=== PATIENT | male | born 1955 | race Caucasian/White ===

== ENCOUNTER 2019-10-19 15:34 | Inpatient (IN) | payer MEDICARE ==
[~2019-10-19] VITALS: Ht 180.3 cm; Wt 115.4 kg
[2019-10-19 17:16] LABS: BASO # 0.1 x10^3/uL (0.0-0.2); BASO % 1 % (0-3); EOS # 0.1 x10^3/uL (0.0-0.7); EOS % 1 % (0-3); HEMATOCRIT 34.4 % (39.0-53.0); LYMPH # 1.7 x10^3/uL (1.0-4.8); LYMPH % 17 % (24-48); MEAN CORPUSCULAR HEMOGLOBIN 31 pg (25-35); MEAN CORPUSCULAR HGB CONC 35 g/dL (31-37); MEAN CORPUSCULAR VOLUME 90 fL (79-100); MONO # 0.9 x10^3/uL (0.0-1.1); MONO % 9 % (0-9); NEUT # 7.3 x10^3/uL (1.8-7.7); NEUT % 72 % (31-73); PLATELET COUNT 200 x10^3/uL (140-400); RED BLOOD COUNT 3.85 x10^6/uL (4.30-5.70); WHITE BLOOD COUNT 10.2 x10^3/uL (4.0-11.0)
[2019-10-19 17:25] LABS: PROTHROMBIN TIME PATIENT 13.2 SEC (11.7-14.0)
[2019-10-19 17:26] LABS: CALCIUM 8.3 mg/dL (8.5-10.1); CREATININE 1.1 mg/dL (0.7-1.3); POTASSIUM 3.7 mmol/L (3.5-5.1)
[2019-10-19 17:32] LABS: ALBUMIN 3.1 g/dL (3.4-5.0); MAGNESIUM 1.9 mg/dL (1.8-2.4); TOTAL BILIRUBIN 0.3 mg/dL (0.2-1.0); TOTAL PROTEIN 6.3 g/dL (6.4-8.2)
[2019-10-19 17:41] LABS: CREATINE KINASE 53 U/L (39-308)
--- NOTE | 2019-10-19 17:48 | RAD ---
CT brain without contrast. HISTORY: Syncopal episode CT scan of brain was done without contrast. There is mucous retention cyst in the right maxillary antrum. There is mucosal thickening in the left maxillary antrum. There is bowing the nasal septum to the right. Remaining sinuses are clear. A skull fracture is not identified. Ventricles are normal in size. There is no mass or shift of the midline. There is no intracranial hemorrhage or subdural hematoma. An acute CVA is not identified. IMPRESSION: 1. No intracranial hemorrhage or acute finding noted. PQRS Compliance Statement: One or more of the following individualized dose reduction techniques were utilized for this examination: 1. Automated exposure control 2. Adjustment of the mA and/or kV according to patient size 3. Use of iterative reconstruction technique Electronically signed by: Etienne Rai MD (10/19/2019 5:45 PM) [facility]
[2019-10-19 18:43] LABS: BILIRUBIN,URINE NEGATIVE (NEG); CLARITY,URINE CLEAR; COLOR,URINE YELLOW; NITRITE,URINE NEGATIVE (NEG); PH,URINE 5.5 (<5.0-8.0); PROTEIN,URINE NEGATIVE (NEG-TRACE); UROBILINOGEN,URINE 0.2 mg/dL (0.2 mg/dL)
[2019-10-19] MEDS ORDERED: IV NORMAL SALINE 1000ML BAG 1,000 ML IV ONE (18:45)
[2019-10-19 18:49] LABS: BACTERIA,URINE 0 /HPF (0-FEW); RBC,URINE 0 /HPF (0-2); WBC,URINE OCC /HPF (0-4)
[2019-10-19] MEDS ORDERED: IV NORMAL SALINE 500ML BAG 500 ML IV ONE (20:45)
--- NOTE | 2019-10-19 22:07 | PHYS DOC ---
Past Medical History Past Medical History: No Pertinent History Past Surgical History: No Surgical History Smoking Status: Never Smoker Alcohol Use: Heavy Additional Information: 5 beers per day General Adult EDM: Chief Complaint: SYNCOPE HPI: HPI: Patient is a 64 year old male who presents to the emergency department following a syncopal episode. Patient states at 4:00 this morning he woke up and felt sweaty and dizzy. He went to the restroom and became nauseated while he was having a bowel movement and felt like he might pass out so he decided to go back to his bed. Patient states at 520 he woke up sitting on his floor. At that time he got back up and went back to bed. Throughout the day today he has noticed dizziness when he gets up to stand. He denies any shortness of breath, cough, chest pain, palpitations, vision changes, numbness, tingling, or weakness. Patient states that he had been mowing outside in the heat for several hours yesterday and felt dizzy when he got home but felt better after he had rested for short period of time. Patient denies any vomiting or abdominal pain. He states that he did have some watery diarrhea today. He currently denies any pain. He denies any medical or surgical history. Patient reports that he does drink alcohol daily usually has 4-5 beers each day. Review of Systems: Review of Systems: Constitutional: See HPI Eyes: Denies change in visual acuity. [] HENT: Denies nasal congestion or sore throat. [] Respiratory: Denies cough or shortness of breath. [] Cardiovascular: Denies chest pain or edema. [] GI: Denies abdominal pain, OR vomiting; see HPI, : Denies dysuria. [] Musculoskeletal: Denies back pain or joint pain. [] Integument: Denies rash. [] Neurologic: Denies headache; see HPI Psychiatric: Denies depression or anxiety. [] Heart Score: Risk Factors: Risk Factors: DM, Current or recent (<one month) smoker, HTN, HLP, family history of CAD, obesity. Risk Scores: Score 0 - 3: 2.5% MACE over next 6 weeks - Discharge Home Score 4 - 6: 20.3% MACE over next 6 weeks - Admit for Clinical Observation Score 7 - 10: 72.7% MACE over next 6 weeks - Early Invasive Strategies Current Medications: Current Medications Medications (Trade) Dose Ordered Sig/Casi Start Time Stop Time Status Last Admin Dose Admin Sodium Chloride 500 ml @ 500 mls/hr 1X ONCE 10/19/19 20:45 10/19/19 21:44 DC 10/19/19 20:48 500 MLS/HR Allergies: Allergies: Allergies Coded Allergies Type Severity Reaction Last Updated Verified No Known Drug Allergies 10/19/19 No Physical Exam: PE: Constitutional: Well developed, well nourished, no acute distress, non-toxic appearance. [] HENT: Normocephalic, atraumatic, bilateral external ears normal, oropharynx dry, no oral exudates, nose normal. [] Eyes: PERRLA, EOMI, conjunctiva normal, no discharge, no nystagmus. [] Neck: Normal range of motion, no stridor. [] Cardiovascular:Heart rate regular rhythm, no murmur [] Lungs & Thorax: Bilateral breath sounds clear to auscultation, my lungs [] Abdomen: soft, no tenderness, no masses, no pulsatile masses. [] Skin: Warm, dry, no erythema, no rash. [] Back: No tenderness Extremities: No cyanosis, no clubbing, ROM intact, no edema. [] Neurologic: Alert and oriented X 3, normal motor function, normal sensory fun ction, no focal deficits noted. [] Psychologic: Affect normal, judgement normal, mood normal. [] Current Patient Data: Labs: Laboratory Tests Test 10/19/19 17:05 10/19/19 18:35 White Blood Count 10.2 x10^3/uL (4.0-11.0) Red Blood Count 3.85 x10^6/uL (4.30-5.70) L Hemoglobin 12.0 g/dL (13.0-17.5) L Hematocrit 34.4 % (39.0-53.0) L Mean Corpuscular Volume 90 fL (79-100) Mean Corpuscular Hemoglobin 31 pg (25-35) Mean Corpuscular Hemoglobin Concent 35 g/dL (31-37) Red Cell Distribution Width 14.0 % (11.5-14.5) Platelet Count 200 x10^3/uL (140-400) Neutrophils (%) (Auto) 72 % (31-73) Lymphocytes (%) (Auto) 17 % (24-48) L Monocytes (%) (Auto) 9 % (0-9) Eosinophils (%) (Auto) 1 % (0-3) Basophils (%) (Auto) 1 % (0-3) Neutrophils # (Auto) 7.3 x10^3/uL (1.8-7.7) Lymphocytes # (Auto) 1.7 x10^3/uL (1.0-4.8) Monocytes # (Auto) 0.9 x10^3/uL (0.0-1.1) Eosinophils # (Auto) 0.1 x10^3/uL (0.0-0.7) Basophils # (Auto) 0.1 x10^3/uL (0.0-0.2) Prothrombin Time 13.2 SEC (11.7-14.0) Prothrombin Time INR 1.0 (0.8-1.1) Activated Partial Thromboplast Time 23 SEC (24-38) L Sodium Level 136 mmol/L (136-145) Potassium Level 3.7 mmol/L (3.5-5.1) Chloride Level 104 mmol/L (98-107) Carbon Dioxide Level 21 mmol/L (21-32) Anion Gap 11 (6-14) Blood Urea Nitrogen 34 mg/dL (8-26) H Creatinine 1.1 mg/dL (0.7-1.3) Estimated GFR (Cockcroft-Gault) 67.0 BUN/Creatinine Ratio 31 (6-20) H Glucose Level 176 mg/dL (70-99) H Calcium Level 8.3 mg/dL (8.5-10.1) L Magnesium Level 1.9 mg/dL (1.8-2.4) Total Bilirubin 0.3 mg/dL (0.2-1.0) Aspartate Amino Transferase (AST) 18 U/L (15-37) Alanine Aminotransferase (ALT) 24 U/L (16-63) Alkaline Phosphatase 48 U/L (46-116) Creatine Kinase 53 U/L (39-308) Creatine Kinase MB (Mass) 1.0 ng/mL (0.0-3.6) Creatine Kinase MB Relative Index % (0-4) Troponin I Quantitative < 0.017 ng/mL (0.000-0.055) Total Protein 6.3 g/dL (6.4-8.2) L Albumin 3.1 g/dL (3.4-5.0) L Albumin/Globulin Ratio 1.0 (1.0-1.7) Urine Collection Type Unknown Urine Color Yellow Urine Clarity Clear Urine pH 5.5 (<5.0-8.0) Urine Specific [place] >=1.030 (1.000-1.030) Urine Protein Negative mg/dL (NEG-TRACE) Urine Glucose (UA) Negative mg/dL (NEG) Urine Ketones (Stick) Negative mg/dL (NEG) Urine Blood Negative (NEG) Urine Nitrite Negative (NEG) Urine Bilirubin Negative (NEG) Urine Urobilinogen Dipstick 0.2 mg/dL (0.2 mg/dL) Urine Leukocyte Esterase Negative (NEG) Urine RBC 0 /HPF (0-2) Urine WBC Occ /HPF (0-4) Urine Bacteria 0 /HPF (0-FEW) Urine Mucus Mod /LPF Laboratory Tests 10/19/19 17:05 Laboratory Tests 10/19/19 17:05 Vital Signs: Vital Signs Date Time Temp Pulse Resp B/P (MAP) Pulse Ox O2 Delivery O2 Flow Rate FiO2 10/19/19 18:52 87 20 125/75 (92) 98 10/19/19 16:47 98.1 Room Air 98.1 EKG: EK sinus tachycardia rate 115, left anterior fascicular block no STEMI read by Dr. Roberts [] Radiology/Procedures: Radiology/Procedures: PROCEDURE: CT HEAD WO CONTRAST CT brain without contrast. HISTORY: Syncopal episode CT scan of brain was done without contrast. There is mucous retention cyst in the right maxillary antrum. There is mucosal thickening in the left maxillary antrum. There is bowing the nasal septum to the right. Remaining sinuses are clear. A skull fracture is not identified. Ventricles are normal in size. There is no mass or shift of the midline. There is no intracranial hemorrhage or subdural hematoma. An acute CVA is not identified. IMPRESSION: 1. No intracranial hemorrhage or acute finding noted. [] Course & Med Decision Making: Course & Med Decision Making Pertinent Labs and Imaging studies reviewed. (See chart for details) [id number] with Dr Erazo who is the admitting physician, and care was assum ed following discussion of patient. Will admit patient to the telemetry floor for syncope, order banana bag at 100 mils an hour, and a cardiology consult. Patient's vital signs stable. Patient remains afebrile, appears nontoxic, respirations even and unlabored. Patient continues to be dizzy with position changes after 1500 mL of IV fluids. Patient's case and plan of care also discussed with Dr. Roberts. [] Park Disclaimer: Park Disclaimer: This electronic medical record was generated, in whole or in part, using a voice recognition dictation system. Departure Departure Impression: Primary Impression: Syncope Qualified Codes: R55 - Syncope and collapse Disposition: ADMITTED INPATIENT Admitting Physician: HORTENSIA ([facility]) Condition: STABLE Referrals: NO PCP (PCP) Justicifation of Admission Dx: Justifications for Admission: Justification of Admission Dx: Yes Comments: syncope dizzy RONALD LE APRN Oct 19, 2019 22:07
[2019-10-19] MEDS ORDERED: MULTIVIT INFUSN,ADULT 4,VIT K 10 ML, THIAMINE INJ 100 MG, FOLIC ACID INJ 1 MG in IV NOR... IV ONE (22:15)
[2019-10-19 23:51] VITALS: BP 117/68
[2019-10-20] VITALS (7 sets, daily range): BP systolic 111–127; BP diastolic 62–72
--- NOTE | 2019-10-20 06:12 | EKG ---
[facility] [address] [place] [address] Test Date: 2019-10-19 Test Time: 16:58:40 Pat Name: SATINDER AZEVEDO Department: Room: Gender: M Silk Screener: : [id number] Requested By: RONALD LE Order Number: [id number] Reading MD: Measurements Intervals [place] Rate: 115 P: 29 NM: 174 QRS: -46 QRSD: 120 T: 71 QT: 324 QTc: 450 Interpretive Statements SINUS TACHYCARDIA ABNORMAL LEFT AXIS DEVIATION R-S TRANSITION ZONE IN V LEADS DISPLACED TO THE LEFT LEFT ANTERIOR FASCICULAR BLOCK ST & T ABNORMALITY, CONSIDER HIGH LATERAL ISCHEMIA OR LEFT VENTRICULAR STRAIN ABNORMAL ECG RI6.01 No previous ECG available for comparison
--- NOTE | 2019-10-20 07:48 | PDOC2 ---
STEVEN CHAU QUANTITATIVE MANAGER 10/20/19 0748: CARDIAC CONSULT DATE OF CONSULT Date of Consult DATE: 10/20/19 TIME: 07:39 REASON FOR CONSULT Reason for Consult: Syncope REFERRING PHYSICIAN Referring Physician: Marianela SOURCE Source: Chart review, Patient HISTORY OF PRESENT ILLNESS HISTORY OF PRESENT ILLNESS This is a pleasant 64 yo male admitted for complains of passin gout. Reports that the other he was mowing for about 1.5 hours midday. He did not drink much fluids that day. In the afternoon he started having dizzy spells. No falls. No chest pain or SOA. No palpitations. He does drink about 4- beers almost daily. 11 PM his dizziness was intermittent. He went to bed and woke up at 4 AM and was dizzy and went to the bathroom and tried to have a BM and ended up with watery stool and was dark and has some red hue in it thinking he must have blood in his BM. He was nauseated and was heading to his bed and then got dizzy and could not recall what happened as when he woke up he was sitting on the floor by the bed. Denies any palpitations, SOA, focal neuro symptoms but did have some mild throbbing TORRES to his left parietal region of his head. No further recurrence of this symptoms but his unconsciousness lasted about from 415 AM to 520 AM. No prior significant CV hx and has not been to a Dr. in a while and no significant cardiac hx. PAST MEDICAL HISTORY Past Medical History umbilical hernia, otherwise no significant medical hx. PAST SURGICAL HISTORY Past Surgical History: No pertinent history FAMILY HISTORY Family History: Diabetes (brother), Stroke (father) SOCIAL HISTORY Smoke: No ALCOHOL: other (4-5 beers at least 4 times weekly) Drugs: None Lives: Alone CURRENT MEDICATIONS CURRENT MEDICATIONS Current Medications Medications (Trade) Dose Ordered Sig/Casi Route PRN Reason Start Time Stop Time Status Last Admin Dose Admin Sodium Chloride 1,000 ml @ 1,000 mls/hr 1X ONCE IV 10/19/19 18:45 10/19/19 19:44 DC 10/19/19 19:15 Sodium Chloride 500 ml @ 500 mls/hr 1X ONCE IV 10/19/19 20:45 10/19/19 21:44 DC 10/19/19 20:48 Multivitamins 10 ml/Thiamine HCl 100 mg/Folic Acid 1 mg/Sodium Chloride 1,011.2 ml @ 100 mls/ hr 1X ONCE IV 10/19/19 22:15 10/20/19 08:21 10/19/19 22:32 ALLERGIES ALLERGIES: Coded Allergies: No Known Drug Allergies (Unverified , 10/19/19) ROS Review of System 14 point ROS evaluated with pertinent positives noted per HPI PHYSICAL EXAM General: Alert, Oriented X3, Cooperative HEENT: Mucous membr. moist/pink Lungs: Clear to auscultation, Normal air movement Heart: Regular rate (SR with no significnat rhythm ectopies) Abdomen: Soft, No tenderness Extremities: No cyanosis, No edema Skin: No breakdown, No significant lesion Neuro: Normal speech, Sensation intact Psych/Mental Status: Mental status NL, Mood NL MUSCULOSKELETAL: Osteoarthritic changes both hands VITALS/I&O VITALS/I&O: Vital Signs Date Time Temp Pulse Resp B/P (MAP) Pulse Ox O2 Delivery O2 Flow Rate FiO2 10/20/19 03:32 98.4 83 18 119/67 (84) 97 Room Air 98.4 I & O 10/19/19 10/19/19 10/20/19 15:00 23:00 07:00 Intake Total 1500 ml Output Total 500 ml Balance 1500 ml -500 ml LABS Lab: Laboratory Tests Test 10/19/19 17:05 10/19/19 18:35 White Blood Count 10.2 x10^3/uL (4.0-11.0) Red Blood Count 3.85 x10^6/uL (4.30-5.70) L Hemoglobin 12.0 g/dL (13.0-17.5) L Hematocrit 34.4 % (39.0-53.0) L Mean Corpuscular Volume 90 fL (79-100) Mean Corpuscular Hemoglobin 31 pg (25-35) Mean Corpuscular Hemoglobin Concent 35 g/dL (31-37) Red Cell Distribution Width 14.0 % (11.5-14.5) Platelet Count 200 x10^3/uL (140-400) Neutrophils (%) (Auto) 72 % (31-73) Lymphocytes (%) (Auto) 17 % (24-48) L Monocytes (%) (Auto) 9 % (0-9) Eosinophils (%) (Auto) 1 % (0-3) Basophils (%) (Auto) 1 % (0-3) Neutrophils # (Auto) 7.3 x10^3/uL (1.8-7.7) Lymphocytes # (Auto) 1.7 x10^3/uL (1.0-4.8) Monocytes # (Auto) 0.9 x10^3/uL (0.0-1.1) Eosinophils # (Auto) 0.1 x10^3/uL (0.0-0.7) Basophils # (Auto) 0.1 x10^3/uL (0.0-0.2) Prothrombin Time 13.2 SEC (11.7-14.0) Prothrombin Time INR 1.0 (0.8-1.1) Activated Partial Thromboplast Time 23 SEC (24-38) L Sodium Level 136 mmol/L (136-145) Potassium Level 3.7 mmol/L (3.5-5.1) Chloride Level 104 mmol/L (98-107) Carbon Dioxide Level 21 mmol/L (21-32) Anion Gap 11 (6-14) Blood Urea Nitrogen 34 mg/dL (8-26) H Creatinine 1.1 mg/dL (0.7-1.3) Estimated GFR (Cockcroft-Gault) 67.0 BUN/Creatinine Ratio 31 (6-20) H Glucose Level 176 mg/dL (70-99) H Calcium Level 8.3 mg/dL (8.5-10.1) L Magnesium Level 1.9 mg/dL (1.8-2.4) Total Bilirubin 0.3 mg/dL (0.2-1.0) Aspartate Amino Transferase (AST) 18 U/L (15-37) Alanine Aminotransferase (ALT) 24 U/L (16-63) Alkaline Phosphatase 48 U/L (46-116) Creatine Kinase 53 U/L (39-308) Creatine Kinase MB (Mass) 1.0 ng/mL (0.0-3.6) Creatine Kinase MB Relative Index % (0-4) Troponin I Quantitative < 0.017 ng/mL (0.000-0.055) Total Protein 6.3 g/dL (6.4-8.2) L Albumin 3.1 g/dL (3.4-5.0) L Albumin/Globulin Ratio 1.0 (1.0-1.7) Urine Collection Type Unknown Urine Color Yellow Urine Clarity Clear Urine pH 5.5 (<5.0-8.0) Urine Specific [place] >=1.030 (1.000-1.030) Urine Protein Negative mg/dL (NEG-TRACE) Urine Glucose (UA) Negative mg/dL (NEG) Urine Ketones (Stick) Negative mg/dL (NEG) Urine Blood Negative (NEG) Urine Nitrite Negative (NEG) Urine Bilirubin Negative (NEG) Urine Urobilinogen Dipstick 0.2 mg/dL (0.2 mg/dL) Urine Leukocyte Esterase Negative (NEG) Urine RBC 0 /HPF (0-2) Urine WBC Occ /HPF (0-4) Urine Bacteria 0 /HPF (0-FEW) Urine Mucus Mod /LPF Laboratory Tests 10/19/19 17:05 Laboratory Tests 10/19/19 17:05 ASSESSMENT/PLAN ASSESSMENT/PLAN 1. Syncope: dehydration contributing but could not completely rule out arrhythmia 2. Alcohol misuse 3. Possible GI bleed: reported diarrhea dark with red hue 4. Prerenal azotemia: due to dehydration 5. Obesity 6. Hyperglycemia Recommendations 1. Has been IV hydrated. TTE today and will consider for MCOT 2. Consider GI eval. Curb ETOH use 3. TSH lipids and A1C AASHISH EUGENE MD 10/20/19 1833: CARDIAC CONSULT ASSESSMENT/PLAN ASSESSMENT/PLAN Patient seen and examined. Agree with above nurse practitioner note. No obvious cardiac pathology noted thus far with a normal echocardiogram and event recorder. He woke up with some night sweats and some symptoms suggestive for possible coronary disease We will plan for an outpatient stress test. He does not have any current angina and he has been active mowing his yard up until recently. STEVEN CHAU QUANTITATIVE MANAGER Oct 20, 2019 07:48 AASHISH EUGENE MD Oct 20, 2019 18:33
[2019-10-20 08:35] LABS: CALCIUM 7.4 mg/dL (8.5-10.1); GFR 74.8; POTASSIUM 3.8 mmol/L (3.5-5.1)
[2019-10-20 08:38] LABS: CHOLESTEROL/HDL RATIO 4.6
--- NOTE | 2019-10-20 09:09 | PDOC1 ---
History and Physical Date of Admission Date of Admission DATE: 10/20/19 TIME: 09:07 Identification/Chief Complaint Chief Complaint Syncope Source Source: Patient History of Present Illness History of Present Illness Mr Escalona is a 64 yo M w/ PMHx of elevated blood pressure without diagnosis of hypertension who presented to the ED via private vehicle after what he describes a syncopal episode. He notes on 10 17 in the evening he mowed the grass and noted it was 98 F he felt tired but still finish the last 20 feet anyway was exhausted and fell asleep very early with a fan and air conditioning on. He awoke suddenly at 4 AM on 10/20/2019 sweating and dizzy and felt the urge to have a bowel movement, he had a large amount of diarrhea with some blood in it and felt relieved and as he was going back to bed he felt a little dizzy and suddenly awoke at 5:20 AM with a headache some dizziness and felt "hung over". He did not note any chest pain or shortness of breath no lower extremity edema. No recent sick contacts. He is a non-smoker drinks 4-5 total beers a week. He is rather sedentary. He does note his father at age 68 though he was a heavy smoker and did have multiple strokes. His mother has diabetes and at age 63, his younger brother has diabetes and he has 3 sisters but otherwise healthy. No known coronary disease in the family. No history of blood clots in the family other than his father's history of strokes. EKG was sinus tachycardia with a rate of 115 bpm with what appeared to be a left anterior fascicular block. CT head was negative for acute abnormality. Troponin negative TSH within normal limits labs within normal limits except glucose of 174 though he had just eaten prior to come to the ED. Fasting glucose morning 104. Current Medications Current Medications Current Medications Sodium Chloride 1,000 ml @ 1,000 mls/hr 1X ONCE IV Last administered on 10/19/19at 19:15; Start 10/19/19 at 18:45; Stop 10/19/19 at 19:44; Status DC Sodium Chloride 500 ml @ 500 mls/hr 1X ONCE IV Last administered on 10/19/19at 20:48; Start 10/19/19 at 20:45; Stop 10/19/19 at 21:44; Status DC Multivitamins 10 ml/Thiamine HCl 100 mg/Folic Acid 1 mg/Sodium Chloride 1,011.2 ml @ 100 mls/ hr 1X ONCE IV Last administered on 10/19/19at 22:32; Start 10/19/19 at 22:15; Stop 10/20/19 at 08:21; Status DC Allergies Allergies: Coded Allergies: No Known Drug Allergies (Unverified , 10/19/19) Vitals Vitals Vital Signs Date Time Temp Pulse Resp B/P (MAP) Pulse Ox O2 Delivery O2 Flow Rate FiO2 10/20/19 08:24 97 115/69 (84) 10/20/19 07:00 98.0 18 97 Room Air 98.0 Labs Labs Laboratory Tests Test 10/19/19 17:05 10/19/19 18:35 10/20/19 08:00 White Blood Count 10.2 x10^3/uL (4.0-11.0) Red Blood Count 3.85 x10^6/uL (4.30-5.70) Hemoglobin 12.0 g/dL (13.0-17.5) Hematocrit 34.4 % (39.0-53.0) Mean Corpuscular Volume 90 fL (79-100) Mean Corpuscular Hemoglobin 31 pg (25-35) Mean Corpuscular Hemoglobin Concent 35 g/dL (31-37) Red Cell Distribution Width 14.0 % (11.5-14.5) Platelet Count 200 x10^3/uL (140-400) Neutrophils (%) (Auto) 72 % (31-73) Lymphocytes (%) (Auto) 17 % (24-48) Monocytes (%) (Auto) 9 % (0-9) Eosinophils (%) (Auto) 1 % (0-3) Basophils (%) (Auto) 1 % (0-3) Neutrophils # (Auto) 7.3 x10^3/uL (1.8-7.7) Lymphocytes # (Auto) 1.7 x10^3/uL (1.0-4.8) Monocytes # (Auto) 0.9 x10^3/uL (0.0-1.1) Eosinophils # (Auto) 0.1 x10^3/uL (0.0-0.7) Basophils # (Auto) 0.1 x10^3/uL (0.0-0.2) Prothrombin Time 13.2 SEC (11.7-14.0) Prothromb Time International Ratio 1.0 (0.8-1.1) Activated Partial Thromboplast Time 23 SEC (24-38) Sodium Level 136 mmol/L (136-145) 139 mmol/L (136-145) Potassium Level 3.7 mmol/L (3.5-5.1) 3.8 mmol/L (3.5-5.1) Chloride Level 104 mmol/L (98-107) 106 mmol/L (98-107) Carbon Dioxide Level 21 mmol/L (21-32) 25 mmol/L (21-32) Anion Gap 11 (6-14) 8 (6-14) Blood Urea Nitrogen 34 mg/dL (8-26) 21 mg/dL (8-26) Creatinine 1.1 mg/dL (0.7-1.3) 1.0 mg/dL (0.7-1.3) Estimated GFR (Cockcroft-Gault) 67.0 74.8 BUN/Creatinine Ratio 31 (6-20) Glucose Level 176 mg/dL (70-99) 102 mg/dL (70-99) Calcium Level 8.3 mg/dL (8.5-10.1) 7.4 mg/dL (8.5-10.1) Magnesium Level 1.9 mg/dL (1.8-2.4) Total Bilirubin 0.3 mg/dL (0.2-1.0) Aspartate Amino Transf (AST/SGOT) 18 U/L (15-37) Alanine Aminotransferase (ALT/SGPT) 24 U/L (16-63) Alkaline Phosphatase 48 U/L (46-116) Creatine Kinase 53 U/L (39-308) 39 U/L (39-308) Creatine Kinase MB (Mass) 1.0 ng/mL (0.0-3.6) Creatine Kinase MB Relative Index % (0-4) Troponin I Quantitative < 0.017 ng/mL (0.000-0.055) Total Protein 6.3 g/dL (6.4-8.2) Albumin 3.1 g/dL (3.4-5.0) Albumin/Globulin Ratio 1.0 (1.0-1.7) Urine Collection Type Unknown Urine Color Yellow Urine Clarity Clear Urine pH 5.5 (<5.0-8.0) Urine Specific [place] >=1.030 (1.000-1.030) Urine Protein Negative mg/dL (NEG-TRACE) Urine Glucose (UA) Negative mg/dL (NEG) Urine Ketones (Stick) Negative mg/dL (NEG) Urine Blood Negative (NEG) Urine Nitrite Negative (NEG) Urine Bilirubin Negative (NEG) Urine Urobilinogen Dipstick 0.2 mg/dL (0.2 mg/dL) Urine Leukocyte Esterase Negative (NEG) Urine RBC 0 /HPF (0-2) Urine WBC Occ /HPF (0-4) Urine Bacteria 0 /HPF (0-FEW) Urine Mucus Mod /LPF Triglycerides Level 175 mg/dL (0-150) Cholesterol Level 124 mg/dL (0-200) LDL Cholesterol, Calculated 62 mg/dL (0-100) VLDL Cholesterol, Calculated 35 mg/dL (0-40) Non-HDL Cholesterol Calculated 97 mg/dL (0-129) HDL Cholesterol 27 mg/dL (40-60) Cholesterol/HDL Ratio 4.6 Thyroid Stimulating Hormone (TSH) 2.532 uIU/mL (0.358-3.74) Laboratory Tests Test 10/19/19 17:05 10/19/19 18:35 10/20/19 08:00 White Blood Count 10.2 x10^3/uL (4.0-11.0) Red Blood Count 3.85 x10^6/uL (4.30-5.70) Hemoglobin 12.0 g/dL (13.0-17.5) Hematocrit 34.4 % (39.0-53.0) Mean Corpuscular Volume 90 fL (79-100) Mean Corpuscular Hemoglobin 31 pg (25-35) Mean Corpuscular Hemoglobin Concent 35 g/dL (31-37) Red Cell Distribution Width 14.0 % (11.5-14.5) Platelet Count 200 x10^3/uL (140-400) Neutrophils (%) (Auto) 72 % (31-73) Lymphocytes (%) (Auto) 17 % (24-48) Monocytes (%) (Auto) 9 % (0-9) Eosinophils (%) (Auto) 1 % (0-3) Basophils (%) (Auto) 1 % (0-3) Neutrophils # (Auto) 7.3 x10^3/uL (1.8-7.7) Lymphocytes # (Auto) 1.7 x10^3/uL (1.0-4.8) Monocytes # (Auto) 0.9 x10^3/uL (0.0-1.1) Eosinophils # (Auto) 0.1 x10^3/uL (0.0-0.7) Basophils # (Auto) 0.1 x10^3/uL (0.0-0.2) Prothrombin Time 13.2 SEC (11.7-14.0) Prothromb Time International Ratio 1.0 (0.8-1.1) Activated Partial Thromboplast Time 23 SEC (24-38) Sodium Level 136 mmol/L (136-145) 139 mmol/L (136-145) Potassium Level 3.7 mmol/L (3.5-5.1) 3.8 mmol/L (3.5-5.1) Chloride Level 104 mmol/L (98-107) 106 mmol/L (98-107) Carbon Dioxide Level 21 mmol/L (21-32) 25 mmol/L (21-32) Anion Gap 11 (6-14) 8 (6-14) Blood Urea Nitrogen 34 mg/dL (8-26) 21 mg/dL (8-26) Creatinine 1.1 mg/dL (0.7-1.3) 1.0 mg/dL (0.7-1.3) Estimated GFR (Cockcroft-Gault) 67.0 74.8 BUN/Creatinine Ratio 31 (6-20) Glucose Level 176 mg/dL (70-99) 102 mg/dL (70-99) Calcium Level 8.3 mg/dL (8.5-10.1) 7.4 mg/dL (8.5-10.1) Magnesium Level 1.9 mg/dL (1.8-2.4) Total Bilirubin 0.3 mg/dL (0.2-1.0) Aspartate Amino Transf (AST/SGOT) 18 U/L (15-37) Alanine Aminotransferase (ALT/SGPT) 24 U/L (16-63) Alkaline Phosphatase 48 U/L (46-116) Creatine Kinase 53 U/L (39-308) 39 U/L (39-308) Creatine Kinase MB (Mass) 1.0 ng/mL (0.0-3.6) Creatine Kinase MB Relative Index % (0-4) Troponin I Quantitative < 0.017 ng/mL (0.000-0.055) Total Protein 6.3 g/dL (6.4-8.2) Albumin 3.1 g/dL (3.4-5.0) Albumin/Globulin Ratio 1.0 (1.0-1.7) Urine Collection Type Unknown Urine Color Yellow Urine Clarity Clear Urine pH 5.5 (<5.0-8.0) Urine Specific [place] >=1.030 (1.000-1.030) Urine Protein Negative mg/dL (NEG-TRACE) Urine Glucose (UA) Negative mg/dL (NEG) Urine Ketones (Stick) Negative mg/dL (NEG) Urine Blood Negative (NEG) Urine Nitrite Negative (NEG) Urine Bilirubin Negative (NEG) Urine Urobilinogen Dipstick 0.2 mg/dL (0.2 mg/dL) Urine Leukocyte Esterase Negative (NEG) Urine RBC 0 /HPF (0-2) Urine WBC Occ /HPF (0-4) Urine Bacteria 0 /HPF (0-FEW) Urine Mucus Mod /LPF Triglycerides Level 175 mg/dL (0-150) Cholesterol Level 124 mg/dL (0-200) LDL Cholesterol, Calculated 62 mg/dL (0-100) VLDL Cholesterol, Calculated 35 mg/dL (0-40) Non-HDL Cholesterol Calculated 97 mg/dL (0-129) HDL Cholesterol 27 mg/dL (40-60) Cholesterol/HDL Ratio 4.6 Thyroid Stimulating Hormone (TSH) 2.532 uIU/mL (0.358-3.74) Images Images CT scan of brain was done without contrast There is mucous retention cyst in the right maxillary antrum. There is mucosal thickening in the left maxillary antrum. There is bowing the nasal septum to the right. Remaining sinuses are clear. A skull fracture is not identified. Ventricles are normal in size. There is no mass or shift of the midline. There is no intracranial hemorrhage or subdural hematoma. An acute CVA is not identified. IMPRESSION: 1. No intracranial hemorrhage or acute finding noted. VTE Prophylaxis Ordered VTE Prophylaxis Devices: No VTE Pharmacological Prophylaxi: Yes Assessment/Plan Assessment/Plan A/P: Syncopal episode -CT head negative, telemetry ordered. The diaphoresis at 4 AM is concerning. This does sound like vasovagal syncope (neurogenic) but with abnormal EKG merits cardiac evaluation echocardiogram. Elevated blood pressure without a diagnosis hypertension Obesity -counseled on weight loss. He will look into [employer] with his Medicare plan. Abnormal EKG - will consult cardiology. Telemetry Blood in stool - no further bleeding Prerenal azotemia - due to dehydration, hydrated FEN - Cardiac diet PPX - Lovenox FULL CODE Dispo - inpatient for workup of syncope, concern for abnormal baseline EKG, will need echocardiogram to assess for wall motion abnormalities/cause of abnormal EKG Justicifation of Admission Dx: Justifications for Admission: Justification of Admission Dx: Yes MYRANDA MARTINEZ MD Oct 20, 2019 09:09
[2019-10-20] MEDS ORDERED: ACETAMINOPHEN 325 MG TABLET. PO PRN (09:15)
[2019-10-20] MEDS ORDERED: ALBUTEROL SULFATE 2.5 MG/3 ML NEBU. NEB PRN (09:15)
[2019-10-20] MEDS ORDERED: ONDANSETRON PF 4 MG/2 ML VIAL. IV PRN (09:15)
[2019-10-20] MEDS ORDERED: MAG HYDROX/ALUMINUM HYD/SIMETH 30 ML ORAL.SUSP PO PRN (09:15)
[2019-10-20] MEDS ORDERED: cloNIDine HCL 0.1 MG TABLET PO PRN (09:15)
--- NOTE | 2019-10-20 10:34 | CARD ---
MR#: [id number] Date of Study: 10/20/2019 Ordering Physician: STEVEN CHAU, Referring Physician: STEVEN CHAU, Tech: Yolette Garcia [facility] APPROVED REPORT EXAM: Two-dimensional and M-mode echocardiogram with Doppler and color Doppler. Other Information Quality : Good INDICATION Syncope 2D DIMENSIONS RVDd2.9 (2.9-3.5cm)Left Atrium(2D)3.4 (1.6-4.0cm) IVSd1.4 (0.7-1.1cm)Aortic Root(2D)3.8 (2.0-3.7cm) LVDd5.8 (3.9-5.9cm)LVOT Diameter2.8 (1.8-2.4cm) PWd1.6 (0.7-1.1cm)LVDs4.7 (2.5-4.0cm) FS (%) 20.2 %SV68.3 ml LVEF(%)40.6 (>50%) Mitral Valve MV E Ytkhtzkk27.1cm/sMV DECEL PTUM175vd MV A Uhymagnq38.5cm/sE/A Ratio0.6 Tricuspid Valve TR P. Ijbntkmz690tn/sRAP [id number] TR Peak Gr.18ykJnEYXL11xgSv Pulmonary Vein S1 Rsilkmfz34.4cm/sD2 Zckkvcil41.6cm/s LEFT VENTRICLE The left ventricle is normal size. There is mild concentric left ventricular hypertrophy. Left ventri rachael systolic function is low normal. EF 50% There is mild global hypokinesis of the left ventricle. T ransmitral Doppler flow pattern is Grade I-abnormal relaxation pattern. RIGHT VENTRICLE The right ventricle is normal size. The right ventricular systolic function is normal. ATRIA The left atrium size is normal. The right atrium size is normal. The interatrial septum is intact wit h no evidence for an atrial septal defect or patent foramen ovale as noted on 2-D or Doppler imaging. AORTIC VALVE The aortic valve is calcified but opens well. Doppler and Color Flow revealed no significant aortic r egurgitation. There is no significant aortic valvular stenosis. MITRAL VALVE The mitral valve is calcified but opens well. There is no evidence of mitral valve prolapse. There is no mitral valve stenosis. Doppler and Color-flow revealed trace mitral regurgitation. TRICUSPID VALVE The tricuspid valve is normal in structure and function. Doppler and Color Flow revealed trace tricus pid regurgitation. The PA pressure was estimated at 25 mmHg. There is no tricuspid valve stenosis. PULMONIC VALVE The pulmonic valve is not well visualized. Doppler and Color Flow revealed mild pulmonic valvular reg urgitation. There is no pulmonic valvular stenosis. GREAT VESSELS The aortic root is normal in size. The ascending aorta is mildly dilated at 3.8 cm. The IVC is normal in size and collapses >50% with inspiration. PERICARDIAL EFFUSION There is no evidence of significant pericardial effusion. Critical Notification Critical Value: No <Conclusion> Left ventricle systolic function is low normal. EF 50% There is mild global hypokinesis of the left ventricle. The ascending aorta is mildly dilated at 3.8 cm. Signed by : Tree Ocampo, Electronically Approved : 10/20/2019 10:33:48
[2019-10-20 11:12] LABS: BARBITURATES NEG (NEG); BENZODIAZEPINES NEG (NEG); CANNABINOIDS NEG (NEG); COCAINE NEG (NEG); METHADONE NEG (NEG); OPIATES NEG (NEG); PHENCYCLIDINE NEG (NEG)
[2019-10-20 11:16] LABS: AMPHETAMINE/METHAMPHETAMINE NEG (NEG)
--- NOTE | 2019-10-20 13:35 | NUR ---
SS following for discharge planning. SS reviewed pt chart and discussed with pt RN. Pt is from home and is currently on room air. Discharge plan is to home when ready. SS will continue to follow for discharge planning.
--- NOTE | 2019-10-20 14:06 | PDOC3 ---
Discharge Summary Visit Information Date of Admission: Oct 19, 2019 Date of Discharge: Oct 20, 2019 Admitting Diagnosis: Syncope Final Diagnosis Syncope Brief Hospital Course Allergies Allergies Coded Allergies Type Severity Reaction Last Updated Verified No Known Drug Allergies 10/19/19 No Vital Signs Vital Signs Date Time Temp Pulse Resp B/P (MAP) Pulse Ox O2 Delivery O2 Flow Rate FiO2 10/20/19 11:00 98.0 79 18 123/66 (85) 96 Room Air 98.0 Lab Results Laboratory Tests Test 10/19/19 17:05 10/19/19 18:35 10/20/19 08:00 10/20/19 10:34 White Blood Count 10.2 x10^3/uL (4.0-11.0) Red Blood Count 3.85 x10^6/uL (4.30-5.70) Hemoglobin 12.0 g/dL (13.0-17.5) Hematocrit 34.4 % (39.0-53.0) Mean Corpuscular Volume 90 fL (79-100) Mean Corpuscular Hemoglobin 31 pg (25-35) Mean Corpuscular Hemoglobin Concent 35 g/dL (31-37) Red Cell Distribution Width 14.0 % (11.5-14.5) Platelet Count 200 x10^3/uL (140-400) Neutrophils (%) (Auto) 72 % (31-73) Lymphocytes (%) (Auto) 17 % (24-48) Monocytes (%) (Auto) 9 % (0-9) Eosinophils (%) (Auto) 1 % (0-3) Basophils (%) (Auto) 1 % (0-3) Neutrophils # (Auto) 7.3 x10^3/uL (1.8-7.7) Lymphocytes # (Auto) 1.7 x10^3/uL (1.0-4.8) Monocytes # (Auto) 0.9 x10^3/uL (0.0-1.1) Eosinophils # (Auto) 0.1 x10^3/uL (0.0-0.7) Basophils # (Auto) 0.1 x10^3/uL (0.0-0.2) Prothrombin Time 13.2 SEC (11.7-14.0) Prothromb Time International Ratio 1.0 (0.8-1.1) Activated Partial Thromboplast Time 23 SEC (24-38) Sodium Level 136 mmol/L (136-145) 139 mmol/L (136-145) Potassium Level 3.7 mmol/L (3.5-5.1) 3.8 mmol/L (3.5-5.1) Chloride Level 104 mmol/L (98-107) 106 mmol/L (98-107) Carbon Dioxide Level 21 mmol/L (21-32) 25 mmol/L (21-32) Anion Gap 11 (6-14) 8 (6-14) Blood Urea Nitrogen 34 mg/dL (8-26) 21 mg/dL (8-26) Creatinine 1.1 mg/dL (0.7-1.3) 1.0 mg/dL (0.7-1.3) Estimated GFR (Cockcroft-Gault) 67.0 74.8 BUN/Creatinine Ratio 31 (6-20) Glucose Level 176 mg/dL (70-99) 102 mg/dL (70-99) Calcium Level 8.3 mg/dL (8.5-10.1) 7.4 mg/dL (8.5-10.1) Magnesium Level 1.9 mg/dL (1.8-2.4) Total Bilirubin 0.3 mg/dL (0.2-1.0) Aspartate Amino Transf (AST/SGOT) 18 U/L (15-37) Alanine Aminotransferase (ALT/SGPT) 24 U/L (16-63) Alkaline Phosphatase 48 U/L (46-116) Creatine Kinase 53 U/L (39-308) 39 U/L (39-308) Creatine Kinase MB (Mass) 1.0 ng/mL (0.0-3.6) Creatine Kinase MB Relative Index % (0-4) Troponin I Quantitative < 0.017 ng/mL (0.000-0.055) Total Protein 6.3 g/dL (6.4-8.2) Albumin 3.1 g/dL (3.4-5.0) Albumin/Globulin Ratio 1.0 (1.0-1.7) Urine Collection Type Unknown Urine Color Yellow Urine Clarity Clear Urine pH 5.5 (<5.0-8.0) Urine Specific [place] >=1.030 (1.000-1.030) Urine Protein Negative mg/dL (NEG-TRACE) Urine Glucose (UA) Negative mg/dL (NEG) Urine Ketones (Stick) Negative mg/dL (NEG) Urine Blood Negative (NEG) Urine Nitrite Negative (NEG) Urine Bilirubin Negative (NEG) Urine Urobilinogen Dipstick 0.2 mg/dL (0.2 mg/dL) Urine Leukocyte Esterase Negative (NEG) Urine RBC 0 /HPF (0-2) Urine WBC Occ /HPF (0-4) Urine Bacteria 0 /HPF (0-FEW) Urine Mucus Mod /LPF Triglycerides Level 175 mg/dL (0-150) Cholesterol Level 124 mg/dL (0-200) LDL Cholesterol, Calculated 62 mg/dL (0-100) VLDL Cholesterol, Calculated 35 mg/dL (0-40) Non-HDL Cholesterol Calculated 97 mg/dL (0-129) HDL Cholesterol 27 mg/dL (40-60) Cholesterol/HDL Ratio 4.6 Thyroid Stimulating Hormone (TSH) 2.532 uIU/mL (0.358-3.74) Urine Opiates Screen Neg (NEG) Urine Methadone Screen Neg (NEG) Urine Barbiturates Neg (NEG) Urine Phencyclidine Screen Neg (NEG) Urine Amphetamine/Methamphetamine Neg (NEG) Urine Benzodiazepines Screen Neg (NEG) Urine Cocaine Screen Neg (NEG) Urine Cannabinoids Screen Neg (NEG) Urine Ethyl Alcohol Neg (NEG) Laboratory Tests Test 10/19/19 17:05 10/19/19 18:35 10/20/19 08:00 10/20/19 10:34 White Blood Count 10.2 x10^3/uL (4.0-11.0) Red Blood Count 3.85 x10^6/uL (4.30-5.70) Hemoglobin 12.0 g/dL (13.0-17.5) Hematocrit 34.4 % (39.0-53.0) Mean Corpuscular Volume 90 fL (79-100) Mean Corpuscular Hemoglobin 31 pg (25-35) Mean Corpuscular Hemoglobin Concent 35 g/dL (31-37) Red Cell Distribution Width 14.0 % (11.5-14.5) Platelet Count 200 x10^3/uL (140-400) Neutrophils (%) (Auto) 72 % (31-73) Lymphocytes (%) (Auto) 17 % (24-48) Monocytes (%) (Auto) 9 % (0-9) Eosinophils (%) (Auto) 1 % (0-3) Basophils (%) (Auto) 1 % (0-3) Neutrophils # (Auto) 7.3 x10^3/uL (1.8-7.7) Lymphocytes # (Auto) 1.7 x10^3/uL (1.0-4.8) Monocytes # (Auto) 0.9 x10^3/uL (0.0-1.1) Eosinophils # (Auto) 0.1 x10^3/uL (0.0-0.7) Basophils # (Auto) 0.1 x10^3/uL (0.0-0.2) Prothrombin Time 13.2 SEC (11.7-14.0) Prothromb Time International Ratio 1.0 (0.8-1.1) Activated Partial Thromboplast Time 23 SEC (24-38) Sodium Level 136 mmol/L (136-145) 139 mmol/L (136-145) Potassium Level 3.7 mmol/L (3.5-5.1) 3.8 mmol/L (3.5-5.1) Chloride Level 104 mmol/L (98-107) 106 mmol/L (98-107) Carbon Dioxide Level 21 mmol/L (21-32) 25 mmol/L (21-32) Anion Gap 11 (6-14) 8 (6-14) Blood Urea Nitrogen 34 mg/dL (8-26) 21 mg/dL (8-26) Creatinine 1.1 mg/dL (0.7-1.3) 1.0 mg/dL (0.7-1.3) Estimated GFR (Cockcroft-Gault) 67.0 74.8 BUN/Creatinine Ratio 31 (6-20) Glucose Level 176 mg/dL (70-99) 102 mg/dL (70-99) Calcium Level 8.3 mg/dL (8.5-10.1) 7.4 mg/dL (8.5-10.1) Magnesium Level 1.9 mg/dL (1.8-2.4) Total Bilirubin 0.3 mg/dL (0.2-1.0) Aspartate Amino Transf (AST/SGOT) 18 U/L (15-37) Alanine Aminotransferase (ALT/SGPT) 24 U/L (16-63) Alkaline Phosphatase 48 U/L (46-116) Creatine Kinase 53 U/L (39-308) 39 U/L (39-308) Creatine Kinase MB (Mass) 1.0 ng/mL (0.0-3.6) Creatine Kinase MB Relative Index % (0-4) Troponin I Quantitative < 0.017 ng/mL (0.000-0.055) Total Protein 6.3 g/dL (6.4-8.2) Albumin 3.1 g/dL (3.4-5.0) Albumin/Globulin Ratio 1.0 (1.0-1.7) Urine Collection Type Unknown Urine Color Yellow Urine Clarity Clear Urine pH 5.5 (<5.0-8.0) Urine Specific [place] >=1.030 (1.000-1.030) Urine Protein Negative mg/dL (NEG-TRACE) Urine Glucose (UA) Negative mg/dL (NEG) Urine Ketones (Stick) Negative mg/dL (NEG) Urine Blood Negative (NEG) Urine Nitrite Negative (NEG) Urine Bilirubin Negative (NEG) Urine Urobilinogen Dipstick 0.2 mg/dL (0.2 mg/dL) Urine Leukocyte Esterase Negative (NEG) Urine RBC 0 /HPF (0-2) Urine WBC Occ /HPF (0-4) Urine Bacteria 0 /HPF (0-FEW) Urine Mucus Mod /LPF Triglycerides Level 175 mg/dL (0-150) Cholesterol Level 124 mg/dL (0-200) LDL Cholesterol, Calculated 62 mg/dL (0-100) VLDL Cholesterol, Calculated 35 mg/dL (0-40) Non-HDL Cholesterol Calculated 97 mg/dL (0-129) HDL Cholesterol 27 mg/dL (40-60) Cholesterol/HDL Ratio 4.6 Thyroid Stimulating Hormone (TSH) 2.532 uIU/mL (0.358-3.74) Urine Opiates Screen Neg (NEG) Urine Methadone Screen Neg (NEG) Urine Barbiturates Neg (NEG) Urine Phencyclidine Screen Neg (NEG) Urine Amphetamine/Methamphetamine Neg (NEG) Urine Benzodiazepines Screen Neg (NEG) Urine Cocaine Screen Neg (NEG) Urine Cannabinoids Screen Neg (NEG) Urine Ethyl Alcohol Neg (NEG) Brief Hospital Course Mr Escalona is a 64 yo M w/ PMHx of elevated blood pressure without diagnosis of hypertension who presented to the ED via private vehicle after what he describes a syncopal episode. He notes on 10 17 in the evening he mowed the grass and noted it was 98 F he felt tired but still finish the last 20 feet anyway was exhausted and fell asleep very early with a fan and air conditioning on. He awoke suddenly at 4 AM on 10/20/2019 sweating and dizzy and felt the urge to have a bowel movement, he had a large amount of diarrhea with some blood in it and felt relieved and as he was going back to bed he felt a little dizzy and suddenly awoke at 5:20 AM with a headache some dizziness and felt "hung over". He did not note any chest pain or shortness of breath no lower extremity edema. No recent sick contacts. He is a non-smoker drinks 4-5 total beers a week. He is rather sedentary. He does note his father at age 68 though he was a heavy smoker and did have multiple strokes. His mother has diabetes and at age 63, his younger brother has diabetes and he has 3 sisters but otherwise healthy. No known coronary disease in the family. No history of blood clots in the family other than his father's history of strokes. EKG was sinus tachycardia with a rate of 115 bpm with what appeared to be a left anterior fascicular block. CT head was negative for acute abnormality. Troponin negative TSH within normal limits labs within normal limits except glucose of 174 though he had just eaten prior to come to the ED. Fasting gl ucose morning 104. Echo: Left ventricle systolic function is low normal. EF 50% There is mild global hypokinesis of the left ventricle. The ascending aorta is mildly dilated at 3.8 cm. Echo results recommended that he have outpatient Holter monitoring and outpatient stress testing and follow-up with cardiology. He is amenable to this. He is also counseled on reducing his alcohol intake and will start an exercise program looking into [employer]. Consults: Cardiology Problem list: Syncopal episode -CT head negative, telemetry ordered. The diaphoresis at 4 AM is concerning. This does sound like vasovagal syncope (neurogenic) but with abnormal EKG merits cardiac evaluation echocardiogram. Elevated blood pressure without a diagnosis hypertension Obesity -counseled on weight loss. He will look into [employer] with his Medicare plan. Abnormal EKG - will consult cardiology. Telemetry Blood in stool - no further bleeding Prerenal azotemia - due to dehydration, hydrated Greater than 135 minutes spent on same day admit and d/c Discharge Information Condition at Discharge: Improved Follow Up: Weeks (1) Disposition/Orders: D/C to Home No Active Prescriptions or Reported Meds Justicifation of Admission Dx: Justifications for Admission: Justification of Admission Dx: Yes MYRANDA MARTINEZ MD Oct 20, 2019 14:06
--- NOTE | 2019-10-20 18:00 | NUR ---
Discharge Note: SATINDER AZEVEDO [facility] Discharge instructions and discharge home medications reviewed with Patient and a copy given. All questions have been answered and understanding verbalized. The following instructions and handouts were given: Stress test and even monitoring Discontinued IV line Patient discharged to home with self care via wheelchair
[2019-10-21 00:08] LABS: HEMOGLOBIN A1C 5.3 % (4.8-5.6)
== END 2019-10-20 18:01 | disposition home or self-care (01) | DRG 312 ==
LOC: EDSEX 15:34 → ER 15:34 → 2 SOUTH 21:53
PROVIDERS: ADMIT Family Medicine; ATTEND Family Medicine
DX: R55 Syncope and collapse (principal); K92.1 Melena; E86.0 Dehydration; R03.0 Elevated blood-pressure reading, without diagnosis of hypertension; E66.9 Obesity, unspecified; R00.0 Tachycardia, unspecified; M10.9 Gout, unspecified; I44.4 Left anterior fascicular block; R94.31 Abnormal electrocardiogram [ECG] [EKG]; R73.9 Hyperglycemia, unspecified; R19.7 Diarrhea, unspecified; Z82.3 Family history of stroke; Z83.3 Family history of diabetes mellitus; Z86.73 Personal history of transient ischemic attack (TIA), and cerebral infarction without residual deficits; Z68.35 Body mass index [BMI] 35.0-35.9, adult; Z72.89 Other problems related to lifestyle
CPT/HCPCS: 36415; 70450; 80048; 80053; 80061; 80307; 81001; 82550; 82553; 83036; 83735; 84443; 84484; 85025; 85610; 85730; 93005; 93306; 96361; 96365; 99285; J3411; J3490; J7030; J7040; G0378

== ENCOUNTER → 2019-10-31 | Outpatient (CLI) | payer MEDICARE ==
[2019-10-20 15:00] VITALS: BP 127/65
[~2019-10-31] MED LIST: REGADENOSON 0.4 MG/5 ML DISP.SYRIN. IV ONE
--- NOTE | 2019-11-01 13:50 | RAD ---
MR#: [id number] Date of Study: 10/31/2019 Ordering Physician: AASHISH OCAMPO, Referring Physician: GREGORY RIVERO Tech: BRENDAN Vee ARRT (R) (N) APPROVED REPORT Test Type: Pharmacological Stress Nurse/Tech: Consuelo Warren R.N. Test Indications: syncope Cardiac History: none Medications: none Medical History: none Resting ECG: SR with inverted Ts Resting Heart Rate: 56 bpm Resting Blood Pressure: 139/69mmHg Pretest Chest Pain: No chest pain Nurse/Tech Notes lungs cta, heart tones regular Consent: The procedure was explained to the patient in lay terms. Informed consent was witnessed. Juanito eout was entered into [employer]. History and Stress Test performed by RT Samuel (Ashley) (N) Pharm. Details Pharmacologic stress testing was performed using 0.4mg per 5ml of regadenoson given intravenously ove r 7-10 seconds. Stress Symptoms No chest pain or symptoms. POST EXERCISE Reason for Termination: Infusion complete Target HR: No Max HR: 88 bpm Max Blood Pressure: 131/67mmHg Chest Pain: No. Arrhythmia: No. ST Change: No. INTERPRETATION Stress EKG Conclusion: No evidence of stress induced EKG changes. Imaging Protocol IMAGE PROTOCOL: Rest Tc-99m/stress Tc-99m 1 day Rest: Stress: Viability: Radiopharm.Tc99m QlcsrorhyJr39p Sestamibi Dose10.7mCi 30.3mCi Img Date 10/31/2019 10/31/2019 Inj-Img [id number]. 90min. Rest Admin Site:IV - Right HandAdministrator:BRENDAN Vee, BLAKE (R)(N) Stress Admin Site: IV - Right HandAdministrator: RT Shahana Baker)(N) STRESS DATA End Diast. Vol.166.0mlLVEDV index BSA70.0ml End Syst. Vol.75.0mlLVESV index BSA32.0ml Myocardial Dnic738.0gEject. Lkmietkm09.0% Stress Scores Regional WT1.00Summed WT19.00 Regional WM0.00Summed WM2.00 LV Perfusion There is a moderate to large sized, FIXED inferior wall defect suggestive of prior infarct. Given stacey r normal LV wall motion, this may be subdiaphragmatic attenuation artifact rather than true infarct. Wall Motion Grossly normal wall motion. EF 55% LV Perf. Quant 17 Seg. SSS15.00 17 Seg. SRS6.00 17 Seg. SDS10.00 Stress Defect Extent (% LAD)10.00Rest Defect Extent (% LAD)1.90Rev. Defect Extent (% LAD)10.00 Stress Defect Extent (% LCX) 62.50Rest Defect Extent (% LCX)0.00Rev. Defect Extent (% LCX)62.50 Stress Defect Extent (% RCA)41.10Rest Defect Extent (% RCA)40.00Rev. Defect Extent (% RCA)3.30 Stress Defect Extent (% JASON)35.20Rest Defect Extent (% JASON)17.60Rev. Defect Extent (% JASON)22.40 Other Information Quality:Average Risk Assessment: Moderate Risk Conclusion 1. No evidence of stress induced EKG changes. 2. Fixed inferior wall defect, cannot rule out artifact 3. Normal EF at 55% 4. Moderate risk study 5. Motion artifact. Signed by : Aashish Ocampo, Electronically Approved : 11/01/2019 13:49:40
== END | disposition home or self-care (01) ==
LOC: NM 10:47
PROVIDERS: ATTEND Internal Medicine Cardiovascular Disease
DX: R55 Syncope and collapse (principal)
CPT/HCPCS: 78452; 93017; A9500; J2785